=== PATIENT | female | born 1960 | race Caucasian/White ===

== ENCOUNTER 2019-01-14 21:42 | Emergency (ER) | payer OTHER ==
[2019-01-14] MEDS ORDERED: HYDROmorphone INJ* 0.5 MG/0.5 ML SYRINGE IM ONE (22:51)
[2019-01-14] MEDS ORDERED: PROCHLORPERAZINE INJ 5 MG/ML 2 ML VIAL IM ONE (22:52)
--- NOTE | 2019-01-14 23:36 | ED ---
Upper Extremity Pain - HPI Summary HPI Summary: This patient is a 58 year old F presenting to [facility] with a chief complaint of right upper arm pain radiating into the hand after attempting to catch a bag potting soil two days ago. She went to the emergency department at her home in [place], where she was given tramadol with relief, but no imaging was taken. Pain returned this evening, rated 10/10 in severity. Reports mild relief of pain from ice. Pain worsened with certain movements. Denies neck pain. - History of Current Complaint Chief Complaint: EDExtremityUpper Stated Complaint: SEVERE PAIN IN RIGHT ARM PER PT Time Seen by Provider: 01/14/19 22:33 Hx Obtained From: Patient Mechanism Of Injury: Other - catching potting soil Onset/Duration: Started Days Ago Pain Location: Arm - upper right Aggravating Factor(s): Movement Alleviating Factor(s): Ice Associated Signs & Symptoms: Positive: Negative - Allergies/Home Medications Allergies/Adverse Reactions: Allergies Allergy/AdvReac Type Severity Reaction Status Date / Time No Known Allergies Allergy Verified 01/14/19 22:55 Home Medications: Home Medications Duloxetine HCl 30 mg PO DAILY 01/14/19 [History Confirmed 01/14/19] Synthroid 125 MCG TAB* 125 mcg PO DAILY 01/14/19 [History Confirmed 01/14/19] Tramadol HCl 50 mg PO Q8HR PRN 01/14/19 [History Confirmed 01/14/19] PMH/Surg Hx/FS Hx/Imm Hx Endocrine/Hematology History: Reports: Hx Thyroid Disease Cardiovascular History: Denies: Hx Hypertension Infectious Disease History: No Infectious Disease History: Denies: Traveled Outside the [place] in Last 30 Days - Family History Known Family History: Negative: Cardiac Disease - Social History Lives: With Family Hx Substance Use: No Substance Use Type: Reports: None Hx Tobacco Use: No Smoking Status (MU): Never Smoked Tobacco Review of Systems Negative: Fever Positive: Myalgia - right upper arm pain All Other Systems Reviewed And Are Negative: Yes Physical Exam - Summary Physical Exam Summary: VITAL SIGNS: Reviewed. GENERAL: Patient is a well-developed and nourished female who is lying comfortable in the stretcher. Patient is not in any acute respiratory distress. HEAD AND FACE: No signs of trauma. No ecchymosis, hematomas or skull depressions. No sinus tenderness. EYES: PERRLA, EOMI x 2, No injected conjunctiva, no nystagmus. EARS: Hearing grossly intact. Ear canals and tympanic membranes are within normal limits. MOUTH: Oropharynx within normal limits. NECK: Supple, trachea is midline, no adenopathy, no JVD, no carotid bruit, no c- spine tenderness, neck with full ROM CHEST: Symmetric, no tenderness at palpation LUNGS: Clear to auscultation bilaterally. No wheezing or crackles. CVS: Regular rate and rhythm, S1 and S2 present, no murmurs or gallops appreciated. ABDOMEN: Soft, non-tender. No signs of distention. No rebound no guarding, and no masses palpated. Bowel sounds are normal. EXTREMITIES: no edema, no cyanosis or clubbing. Tenderness to the lateral aspect of the right upper arm;; decreased ROM, mostly with extension, due to pain NEURO: Alert and oriented x 3. No acute neurological deficits. Speech is normal and follows commands. neurovascular exam of RUE distally intact. SKIN: Dry and warm Triage Information Reviewed: Yes Vital Signs On Initial Exam: Initial Vitals Temp Pulse Resp BP Pulse Ox 98.3 F 74 18 165/86 98 01/14/19 21:50 01/14/19 21:50 01/14/19 21:50 01/14/19 21:50 01/14/19 21:50 Vital Signs Reviewed: Yes Diagnostics - Vital Signs Vital Signs Temp Pulse Resp BP Pulse Ox 01/14/19 21:50 98.3 F 74 18 165/86 98 - Laboratory Lab Statement: Any lab studies that have been ordered have been reviewed, and results considered in the medical decision making process. - Radiology Shoulder XR Radiology Interpretation Completed By: ED Physician Summary of Radiographic Findings: No fracture. Pending offical report. Humeral XR Radiology Interpretation Completed By: ED Physician Summary of Radiographic Findings: No fracture. Cyst over the humeral head. Pending offical report. Course/Dx - Course Course Of Treatment: 58 year old F presenting to [facility] with a chief complaint of right upper arm pain radiating into the hand after attempting to catch a bag potting soil two days ago. She went to the emergency department at her home in [place], where she was given tramadol with relief, but no imaging was taken. Patient is given 1mg Dilaudid and 10mg compazine. 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 Pain improved while in the ED. Patient will be discharged home and is instructed to follow up with orthopedics on Wednesday. - Diagnoses Provider Diagnoses: Right arm pain Discharge - Sign-Out/Discharge Documenting (check all that apply): Patient Departure - discharge Patient Received Moderate/Deep Sedation with Procedure: No - Discharge Plan Condition: Stable Disposition: HOME Patient Education Materials: Arm Pain (ED) Referrals: No Primary Care Phys,NOPCP [Primary Care Provider] - Kori Samaniego MD [Medical Doctor] - 2 Days Additional Instructions: Follow up with an orthopedist on Wednesday. RETURN TO THE EMERGENCY DEPARTMENT FOR CHANGING OR WORSENING SYMPTOMS. - Attestation Statements Document Initiated by Scribe: Yes Documenting Scribe: Nadine Fallon Provider For Whom Ashley is Documenting (Include Credential): Collin Reynoso MD Scribe Attestation: Nadine Reza, scribed for Collin Reynoso MD on 01/15/19 at 0033. Status of Scribe Document: Ready
[2019-01-15 00:35] VITALS: BP 140/78
== END 2019-01-15 00:34 | disposition home or self-care (01) ==
LOC: ED 21:42
DX: M79.621 Pain in right upper arm (principal); Z86.39 Personal history of other endocrine, nutritional and metabolic disease; Z79.899 Other long term (current) drug therapy
CPT/HCPCS: 96372; 99282; J0780; J1170